=== PATIENT | female | born 1965 | race Caucasian/White ===

== ENCOUNTER → 2017-10-10 | Outpatient (CLI) | payer BC ==
[~2017-10-10] MED LIST: DRISDOL50000 IU PO; IRON325 MG PO; PRILOSEC 20MG20 MG PO; PRINIVIL40 MG PO; SYNTHROID0.088 MG/T PO; THE MEDICINE S200 M2 PO; VITAMIN D1000 IU PO; VOLTAREN 50MG T50 MG PO; XANAX 0.5MG0.5 MG PO; ZETIA 10MG TAB10 MG PO; ZIAC 2.5/6.25MG1 TAB PO; ZOCOR 20MG20 MG PO
== END ==
LOC: MC.RAD 09-19 14:00
DX: Z12.31 Encounter for screening mammogram for malignant neoplasm of breast (principal); Z98.890 Other specified postprocedural states

== ENCOUNTER → 2018-11-18 | Outpatient (CLI) | payer BC | LOC: MC.RAD 11-09 10:00 | DX: Z12.31 Encounter for screening mammogram for malignant neoplasm of breast (principal) ==

== ENCOUNTER → 2020-11-22 | Outpatient (CLI) | payer OTHER | LOC: MC.RAD | DX: Z12.31 Encounter for screening mammogram for malignant neoplasm of breast (principal); Z98.82 Breast implant status ==

== ENCOUNTER → 2024-01-26 | Outpatient (CLI) | payer BC | LOC: MC.RAD 13:55 | DX: Z12.31 Encounter for screening mammogram for malignant neoplasm of breast (principal) ==